=== PATIENT | male | born 1985 | race African-American/Black ===

== ENCOUNTER 2023-01-31 03:36 | Emergency (ER) | payer SELFPAY ==
[~2023-01-31] VITALS: Ht 185.4 cm; Wt 75.5 kg
[2023-01-31 04:20] LABS: Basophils # (auto) 0.2 10 ^3/uL (0-0.2); Basophils % (auto) 3.2 % (0.0-2.0); Eosinophils # (auto) 0.1 10 ^3/uL (0-0.8); Eosinophils % (auto) 1.1 % (0.0-7.0); Hematocrit 42.6 % (41.0-53.0); Hemoglobin 14.4 g/dL (13.5-17.5); Lymphocytes # (auto) 1.3 10 ^3/uL (0.4-5.4); Lymphocytes % (auto) 21.9 % (10.0-50.0); Mean Corpuscular Hemoglobin 29.5 pg (28.0-32.0); Mean Corpuscular Hgb Conc. 33.8 g/dL (32.0-36.0); Mean Corpuscular Volume 87.3 fL (80.0-100.0); Monocytes # (auto) 0.4 10 ^3/uL (0-1.3); Monocytes % (auto) 6.2 % (0.0-12.0); Neutrophils % (auto) 67.6 % (37.0-80.0); Nucleated Red Blood Cells % 0.3 %; Red Blood Cells 4.88 10^6/uL (4.5-5.90); White Blood Cell 5.9 10^3/uL (4.4-10.8)
[2023-01-31 04:29] LABS: Potassium 3.2 mmol/L (3.5-5.1)
[2023-01-31 04:36] LABS: Albumin 4.5 g/dL (3.4-5.0); BUN/Creatinine Ratio 13.8 (10.0-20.0); Bilirubin, Total 1.5 mg/dL (0.2-1.0); Calcium 9.7 mg/dL (8.5-10.1); Total Protein 8.6 g/dL (6.4-8.2)
[2023-01-31 05:30] VITALS: BP 140/89
[2023-01-31] MEDS ORDERED: ONDANSETRON HCL 4 MG/2 ML VIAL IV ONE (05:30)
[2023-01-31] MEDS ORDERED: SODIUM CHLORIDE 0.9% 1,000 ML IV ONE (05:30)
[2023-01-31] MEDS ORDERED: CIPR-173 PO (05:30)
[2023-01-31] MEDS ORDERED: cefTRIAXone 1GM/50ML D5W 50 ML IV ONE (05:30)
[2023-01-31] MEDS ORDERED: ONDA-144 PO (05:30)
[2023-01-31] MEDS ORDERED: PERCOT PO (05:30)
== END 2023-01-31 06:15 | disposition home or self-care (01) ==
LOC: ER 03:36
DX: K57.30 Diverticulosis of large intestine without perforation or abscess without bleeding (principal)
CPT/HCPCS: 36415; 74176; 80053; 83690; 85025; 96365; 96375; 99285; J0696; J2405; J7030

== ENCOUNTER 2024-09-28 10:35 | Inpatient (IN) | payer BC, OTHER ==
[~2024-09-28] VITALS: Ht 180.3 cm; Wt 80.9 kg
[~2024-09-28 10:35] MED LIST: CIPR-173 PO; CLON0.2T PO; ONDA-144 PO; PERCOT PO
[2024-09-28] MEDS: HYDROcodone-ACET 7.5/325MG TAB PO ONE (13:33)
[2024-09-28 13:37] VITALS: PULSE 58; RESP 18; O2SAT 100
[2024-09-28 13:50] LABS: Basophils # (auto) 0 10 ^3/uL (0-0.2); Basophils % (auto) 0.4 % (0.0-2.0); Eosinophils # (auto) 0 10 ^3/uL (0-0.8); Eosinophils % (auto) 0.7 % (0.0-7.0); Hematocrit 40.7 % (41.0-53.0); Hemoglobin 13.4 g/dL (13.5-17.5); Lymphocytes # (auto) 0.7 10 ^3/uL (0.4-5.4); Lymphocytes % (auto) 9.8 % (10.0-50.0); Mean Corpuscular Hemoglobin 29.5 pg (28.0-32.0); Mean Corpuscular Hgb Conc. 32.8 g/dL (32.0-36.0); Mean Corpuscular Volume 89.8 fL (80.0-100.0); Monocytes # (auto) 0.2 10 ^3/uL (0-1.3); Monocytes % (auto) 2.6 % (0.0-12.0); Neutrophils # (auto) 6.4 10 ^3/uL (1.6-8.6); Neutrophils % (auto) 86.5 % (37.0-80.0); Platelet Count (auto) 351 10^3/uL (140-450); Red Blood Cells 4.53 10^6/uL (4.5-5.90); White Blood Cell 7.4 10^3/uL (4.4-10.8)
[2024-09-28 13:57] LABS: Chloride 107 mmol/L (98-107); Potassium 3.9 mmol/L (3.5-5.1); Sodium 141 mmol/L (136-145)
[2024-09-28 13:58] LABS: Anion Gap 7 (5-15); Carbon Dioxide 27 mmol/L (20-31)
[2024-09-28 14:03] LABS: BUN/Creatinine Ratio 10.4 (10.0-20.0)
[2024-09-28 14:07] LABS: Blood Urea Nitrogen 8 mg/dL (9-23); Calcium 10.5 mg/dL (8.7-10.4); Glucose 116 mg/dL (74-106)
--- NOTE | 2024-09-28 14:26 | DVH ---
CT ABDOMEN AND PELVIS WITHOUT CONTRAST CLINICAL HISTORY: possible right inguinal hernia TECHNIQUE: Multiple contiguous axial images of the abdomen and pelvis without intravenous contrast. The images were reformatted degenerate coronal and sagittal reconstructions. All CT scans at this medical facility are performed using dose modulation techniques as appropriate t o a performed exam including the following:Automated exposure control was utilized; adjustment of the MA and/or KV according to patient size; and use of iterative reconstruction technique. Radiation Dose Information: CT Dose: CTDI volume is a mGy. Dose-length product is 495 mGy*cm Comparison: CT CT AB PEL WO CON-NO ORAL OR IV on DOS: 01/31/23 FINDINGS: Evaluation of the abdomen and pelvis is limited without intravenous contrast. There is a moderate size right inguinal hernia containing fluid, intra-abdominal fat and small bowel loop . There is likely small bowel obstruction with dilated loops proximal to the herniating loop in the right inguinal hernia. These measure up to 3.5 cm and are fluid-filled. The large bowel loops dem onstrate normal caliber. There is a small fat containing left inguinal hernia. The liver, gallbladder, pancreas, kidneys, adrenal glands, and spleen appear within normal limits. There is no gross evidence of abdominal lymphadenopathy. There is no free fluid or free air. The stomach grossly appears unremarkable. The abdominal aorta and IVC appear within normal limits. The bladder appears unremarkable for the degree of distention. Pelvic organ appears within normal miranda its. There is no gross evidence of a pelvic mass. There is no free fluid collection. Lung bases are clear. Again noted is a bleb in the lingula. There is no acute osseous abnormality. IMPRESSION: 1. Moderate size right inguinal hernia containing fluid, intra-abdominal fat and small bowel loop. Th ere is likely small bowel obstruction with dilated loops proximal to the herniating loop in the right inguinal hernia. 2. Small fat containing left inguinal hernia. HS:Y
--- NOTE | 2024-09-28 14:42 | ED.PDOC ---
General HPI Comments This is a pleasant 39-year-old male no pertinent MHx that presents for a possible right inguinal hernia Patient reports feeling pain yesterday at work Pain has been persistent since currently rated moderate to severe Wearing a hernia belt Denies any other complaints Chief Complaint: Testicle Pain Time Seen by MD: 10:59 Reviewed notes: Nurses Notes, Medications, Allergies Allergies: Coded Allergies: NO KNOWN ALLERGIES (Unverified , 01/31/23) Home Meds Active Scripts Clonidine Hydrochloride (Clonidine Hcl) 0.2 Mg Tab, 1 TAB PO BID, #20 TAB 0 Refills To be used if systolic blood pressures above 160 or diastolic pressures above 90 Prov:JUVENTINO FAJARDO PAC 09/30/23 Information Source: Patient Mode of Arrival: Ambulatory Past Medical History PAST MEDICAL HISTORY: Denies Surgical History: Denies all surgeries Family History Family History: Unknown Social History Smoker: Cigarettes Alcohol: Denies ETOH Use Drugs: Marijuana Lives In: Home All Other Systems: Reviewed and Negative (Per HPI) Physical Exam General Appearance: No Apparent Distress, Normal HEENT: Normal ENT Inspection, Pharynx Normal, TMs Normal Neck: Full Range of Motion, Non-Tender, Normal, Normal Inspection Respiratory: Chest Non-Tender, Lungs Clear, No Accessory Muscle Use, No Respiratory Distress, Normal Breath Sounds Cardiovascular: No Edema, No JVD, No Murmur, No Gallop, Normal Peripheral Pulses, Regular Rate/Rhythm Breast Exam: Deferred Gastrointestinal: No Organomegaly, Non Tender, No Pulsatile Mass, Normal Bowel Sounds, Soft, Other (Right bulging inguinal hernia. Tender to palpation. No si gns of strangulation, erythema.) Genitalia: Deferred Pelvic: Deferred Rectal: Deferred Extremities: No calf tenderness, Normal capillary refill, Normal inspection, Normal range of motion, Non-tender, No pedal edema Musculoskeletal : Apperance: Normal Neurologic: Alert, reporting process consultant II-XII nml as Tested, No Motor Deficits, Normal Affect, Normal Mood, No Sensory Deficits Cerebellar Function: Normal Reflexes: Normal Skin: Dry, Normal Color, Warm Lymphatic: No Adenopathy Was a procedure done? Was a procedure done?: No Differential Diagnosis Kidney stone (Female): Other X-Ray, Labs, Meds, VS Vital Signs Date Time Temp Pulse Resp B/P (MAP) Pulse Ox O2 Delivery O2 Flow Rate FiO2 09/28/24 20:13 99.5 53 18 158/98 (118) 98 99.5 09/28/24 13:37 58 18 100 Room Air* 0 21 09/28/24 13:35 97.5 58 18 147/98 (114) 100 97.5 09/28/24 11:05 97.7 72 18 148/104 (119) 98 97.7 09/28/24 10:46 99.0 77 18 152/104 (120) 98 Lab Test 09/28/24 13:36 Range/Units White Blood Count 7.4 4.4-10.8 10^3/uL Red Blood Count 4.53 4.5-5.90 10^6/uL Hemoglobin 13.4 L 13.5-17.5 g/dL Hematocrit 40.7 L 41.0-53.0 % Mean Corpuscular Volume 89.8 80.0-100.0 fL Mean Corpuscular Hemoglobin 29.5 28.0-32.0 pg Mean Corpuscular Hemoglobin Concent 32.8 32.0-36.0 g/dL Red Cell Distribution Width 15.0 H 11.8-14.3 % Platelet Count 351 140-450 10^3/uL Mean Platelet Volume 7.7 6.9-10.8 fL Neutrophils (%) (Auto) 86.5 H 37.0-80.0 % Lymphocytes (%) (Auto) 9.8 L 10.0-50.0 % Monocytes (%) (Auto) 2.6 0.0-12.0 % Eosinophils (%) (Auto) 0.7 0.0-7.0 % Basophils (%) (Auto) 0.4 0.0-2.0 % Neutrophils # (Auto) 6.4 1.6-8.6 10 ^3/uL Lymphocytes # (Auto) 0.7 0.4-5.4 10 ^3/uL Monocytes # (Auto) 0.2 0-1.3 10 ^3/uL Eosinophils # (Auto) 0 0-0.8 10 ^3/uL Basophils # (Auto) 0 0-0.2 10 ^3/uL Nucleated Red Blood Cells 0.0 % Sodium Level 141 136-145 mmol/L Potassium Level 3.9 3.5-5.1 mmol/L Chloride Level 107 98-107 mmol/L Carbon Dioxide Level 27 20-31 mmol/L Anion Gap 7 5-15 Blood Urea Nitrogen 8 L 9-23 mg/dL Creatinine 0.77 0.700-1.30 mg/dL Glomerular Filtration Rate Calc 118 >90 mL/min BUN/Creatinine Ratio 10.4 10.0-20.0 Serum Glucose 116 H 74-106 mg/dL Calcium Level 10.5 H 8.7-10.4 mg/dL Total Bilirubin 0.3 0.2-1.0 mg/dL Direct Bilirubin 0.1 <0.3 mg/dL Aspartate Amino Transferase (AST) 17 13-40 U/L Alanine Aminotransferase (ALT) 15 7-40 U/L Alkaline Phosphatase 72 46-116 U/L Total Protein 8.0 5.7-8.2 g/dL Albumin 5.2 H 3.2-4.8 g/dL Current Medications Medications (Trade) Dose Ordered Sig/Anita Route Start Time Stop Time Status Last Admin Acetaminophen/ Hydrocodone Bitart ([place] 7.5/325MG Tab) 1 tab ONCE ONCE PO 09/28/24 13:15 09/28/24 13:16 DC 09/28/24 13:33 Ondansetron HCl (Zofran Po) 4 mg ONCE ONCE PO 09/28/24 18:15 09/28/24 18:16 DC 09/28/24 18:11 PATIENT: RIKY PETERSONT: [id number]: [id number] : 1985 LOC: ER ROOM / BED: / AGE / SEX: 39 / M ADM STATUS: REG ER SERVICE [id number] ORDERING PHYSICIAN: DORY DEE NP PROCEDURE(s): ABPL - CT AB PEL WO CON-NO ORAL OR IV REASON: possible right inguinal hernia ORDER NUMBER(s): [id number], ACCESSION NUMBER(s): [id number] CT ABDOMEN AND PELVIS WITHOUT CONTRAST CLINICAL HISTORY: possible right inguinal hernia TECHNIQUE: Multiple contiguous axial images of the abdomen and pelvis without intravenous contrast. The images were reformatted degenerate coronal and sagittal reconstructions. All CT scans at this medical facility are performed using dose modulation techniques as appropriate to a performed exam including the following:Automated exposure control was utilized; adjustment of the MA and/or KV according to patient size; and use of iterative reconstruction technique. Radiation Dose Information: CT Dose: CTDI volume is a mGy. Dose-length product is 495 mGy*cm Comparison: CT CT AB PEL WO CON-NO ORAL OR IV on DOS: 01/31/23 FINDINGS: Evaluation of the abdomen and pelvis is limited without intravenous contrast. There is a moderate size right inguinal hernia containing fluid, intra-abdominal fat and small bowel loop . There is likely small bowel obstruction with dilated loops proximal to the herniating loop in the right inguinal hernia. These measure up to 3.5 cm and are fluid-filled. The large bowel loops demonstrate normal caliber. There is a small fat containing left inguinal hernia. The liver, gallbladder, pancreas, kidneys, adrenal glands, and spleen appear within normal limits. There is no gross evidence of abdominal lymphadenopathy. There is no free fluid or free air. The stomach grossly appears unremarkable. The abdominal aorta and IVC appear within normal limits. The bladder appears unremarkable for the degree of distention. Pelvic organ appears within normal limits. There is no gross evidence of a pelvic mass. There is no free fluid collection. Lung bases are clear. Again noted is a bleb in the lingula. There is no acute osseous abnormality. IMPRESSION: 1. Moderate size right inguinal hernia containing fluid, intra-abdominal fat and small bowel loop. There is likely small bowel obstruction with dilated loops proximal to the herniating loop in the right inguinal hernia. 2. Small fat containing left inguinal hernia. HS:Y ATED BY: GOMEZ FRANCIS MD DICTATED DATE/TIME: 09/28/241423 SIGNED BY: GOMEZ FRANCIS MD SIGNED DATE/TIME: 09/28/24 142 CC: X-Ray, Labs, Meds, VS Comment This is a pleasant 39-year-old male no pertinent MHx that presents for a possible right inguinal hernia Ab CT/Pelvis shows: 1. Moderate size right inguinal hernia containing fluid, intra-abdominal fat and small bowel loop. There is likely small bowel obstruction with dilated loops proximal to the herniating loop in the right inguinal hernia. 2. Small fat containing left inguinal hernia. Will consult with hospitalist for admission Time of 1ST Reevaluation: 14:32 Reevaluation 1ST: Improved Patient Education/Counseling: Diagnosis, Treatment Family Education/Counseling: Diagnosis, Treatment Departure 1 Departure Time of Disposition: 14:36 Impression: Primary Impression: Inguinal hernia Qualified Codes: K40.90 - Unilateral inguinal hernia, without obstruction or gangrene, not specified as recurrent Additional Impression: SBO (small bowel obstruction) Disposition: 09 ADMITTED INPATIENT Condition: Fair Critical Care Note Critical Care Time?: No Stability Stability form required: No Heart Score Heart Score: Heart Score Response (Comments) Value History N/A 0 EKG N/A 0 Age N/A 0 Risk Factors N/A 0 Troponin N/A 0 Total 0 DORY DEE NP Sep 28, 2024 14:42
[2024-09-28] MEDS: ONDANSETRON ODT 4 MG TAB PO ONE (18:11)
[2024-09-28 20:13] VITALS: BP 158/98; PULSE 53; RESP 18; TEMP 99.5; O2SAT 98
--- NOTE | 2024-09-28 22:39 | DVHHPRES ---
History of Present Illness Resident Creating Document: TOBIN SWAN RESIDENT Reason for Visit: abdominal pain, nausea and vomiting History of Present Illness This is a 39-year-old male who came into the hospital with chief complain of abdominal pain, nausea and vomiting. He has a past medical history relevant for hypertension, taking clonidine. Patient states that since yesterday he started having severe abdominal pain, most prominent on right groin area, localized, fluctuating from moderate to severe. Associated with nausea and several episodes of vomiting, he states that he is currently passing gases, his last bowel movement was yesterday morning. Denies any hematochezia, melena or hematemesis. Denies any chest pain, shortness of breath, dizziness, lightheadedness, chills, fevers, general malaise. PMH: Hypertension PSH: Denied SH: Alcohol occasionally, current smoker 5 cigarretes/day for 3 years. Cannabis 2-3x per week PCP: Mayco Deleon MD Cardiovascular: HTN Past Medical History See HPI Past Surgical History See HPI Family History See HPI Review of Systems Constitutional: No: Fever, Chills, Sweats, Weakness, Malaise, Other Eyes: No: Pain, Vision change, Conjunctivae inflammation, Eyelid inflammation, Other, Redness ENT: No: Ear pain, Ear discharge, Nose pain, Nose discharge, Nose congestion, Mouth pain, Mouth swelling, Throat pain, Throat swelling, Other Respiratory: No: Cough, Dry, Shortness of breath, SOB with excertion, Wheezing, Hemoptysis, Pleuritic Pain, Sputum, Wheezing, Other Cardiovascular: No: Chest Pain, Palpitations, Orthopnea, Paroxysmal Noc. Dyspnea, Edema, Lt Headedness, Other Gastrointestinal: Nausea, Vomiting, Abdominal Pain; No: Diarrhea, Constipation, Melena, Hematochezia, Other Genitourinary: No Dysuria, No Frequency, No Incontinence, No Hematuria, No Retention, No Other Musculoskeletal: No: other, neck pain, shoulder pain, arm pain, back pain, hand pain, leg pain, foot pain Skin: No: Rash, Lesions, Jaundice, Bruising, Other Neurological: No: Weakness, Numbness, Incoordination, Change in speech, Confusion, Seizures, Other Allergies: Coded Allergies: NO KNOWN ALLERGIES (Unverified , 01/31/23) Medications Current Medications Medications Dose Ordered Sig/Anita Route Start Time Stop Time Status Last Admin Dose Admin Ondansetron HCl 4 mg Q4HPRN PRN IV 09/28/24 22:30 UNV Dextrose/Sodium Chloride 1,000 ml @ 125 mls/hr Q8H IV 09/28/24 22:30 UNV Morphine Sulfate 2 mg Q4HPRN PRN IV 09/28/24 22:30 UNV Exam Vital Signs Vital Signs Date Time Temp Pulse Resp B/P (MAP) Pulse Ox O2 Delivery O2 Flow Rate FiO2 09/28/24 20:13 99.5 53 18 158/98 (118) 98 99.5 09/28/24 13:37 Room Air* 0 21 General Appearance: Alert, Oriented X3, Cooperative, mild distress HEENT: Atraumatic, PERRLA, EOMI, Mucous membr. moist/pink Respiratory: Clear to auscultation, Normal air movement Cardiovascular: Regular rate, Normal S1, Normal S2, No murmurs Abdominal: Normal bowel sounds, Soft, Other (right inguinal bulge, tender, non reducible) Extremities: No clubbing, No cyanosis, No edema, Normal pulses Skin: No rashes, No breakdown, No significant lesion Neuro: Normal gait, Normal speech, Strength at 5/5 X4 ext, Normal tone Psych/Mental Status: Mental status NL, Mood NL Labs/Xrays Labs Test 09/28/24 13:36 Range/Units White Blood Count 7.4 4.4-10.8 10^3/uL Red Blood Count 4.53 4.5-5.90 10^6/uL Hemoglobin 13.4 L 13.5-17.5 g/dL Hematocrit 40.7 L 41.0-53.0 % Mean Corpuscular Volume 89.8 80.0-100.0 fL Mean Corpuscular Hemoglobin 29.5 28.0-32.0 pg Mean Corpuscular Hemoglobin Concent 32.8 32.0-36.0 g/dL Red Cell Distribution Width 15.0 H 11.8-14.3 % Platelet Count 351 140-450 10^3/uL Mean Platelet Volume 7.7 6.9-10.8 fL Neutrophils (%) (Auto) 86.5 H 37.0-80.0 % Lymphocytes (%) (Auto) 9.8 L 10.0-50.0 % Monocytes (%) (Auto) 2.6 0.0-12.0 % Eosinophils (%) (Auto) 0.7 0.0-7.0 % Basophils (%) (Auto) 0.4 0.0-2.0 % Neutrophils # (Auto) 6.4 1.6-8.6 10 ^3/uL Lymphocytes # (Auto) 0.7 0.4-5.4 10 ^3/uL Monocytes # (Auto) 0.2 0-1.3 10 ^3/uL Eosinophils # (Auto) 0 0-0.8 10 ^3/uL Basophils # (Auto) 0 0-0.2 10 ^3/uL Nucleated Red Blood Cells 0.0 % Sodium Level 141 136-145 mmol/L Potassium Level 3.9 3.5-5.1 mmol/L Chloride Level 107 98-107 mmol/L Carbon Dioxide Level 27 20-31 mmol/L Anion Gap 7 5-15 Blood Urea Nitrogen 8 L 9-23 mg/dL Creatinine 0.77 0.700-1.30 mg/dL Glomerular Filtration Rate Calc 118 >90 mL/min BUN/Creatinine Ratio 10.4 10.0-20.0 Serum Glucose 116 H 74-106 mg/dL Calcium Level 10.5 H 8.7-10.4 mg/dL Assessment/Plan Assessment/Plan # abdominal pain likely due to small-bowel obstruction, not incarcerated or strangulated #bilateral inguinal hernia NPO Maintenance fluids D5 water/NS 120ml/hr Zofran p.r.n. Morphine p.r.n. ordered type and screen, LFTs, PT/PTT Consulted surgery #Hypertension, uncontrolled Hydralazine prn #Nicotine dependent #Cannabis dependent Counseled on lifestyle modifications, smoking cessation and cannabis cessation Goals of care discussed for 30 minutes. Full code Case was discussed with Dr. Bhatia Plan discussed with: Patient My Orders Orders - TOBIN SWAN RESIDENT Procedure Category Date Status Time Admit ADMIT 09/28/24 Transmitted 22:19 Notify Of Changes TEA 09/28/24 In Process From Base 22:19 Npo Except Ice Chips ORDERS 09/28/24 Transmitted 22:19 Ondansetron Hcl PHA 09/28/24 Logged (Zofran) 22:30 D5w/Sod Chlo 0.9% PHA 09/28/24 Logged (D5w Ns 0.9%) 22:30 Urinalysis LAB 09/28/24 Logged 22:19 Drug Screen LAB 09/28/24 Logged 22:19 * Surgical Consult CONS 09/28/24 Transmitted Morphine Sulfate PHA 09/28/24 Logged Injection 22:30 Hepatic Panel LAB 09/28/24 Logged 22:19 Date of Service: Sep 28, 2024 Billing Provider: CONSTANTINO BHATIA MD Common Visit Codes: [id number] INP/OBS CARE (HIGH) TOBIN SWAN RESIDENT Sep 28, 2024 22:39 CONSTANTINO BHATIA MD Sep 29, 2024 09:43
[2024-09-28 22:59] LABS: Albumin 5.2 g/dL (3.2-4.8); Bilirubin, Direct 0.1 mg/dL (<0.3); Bilirubin, Total 0.3 mg/dL (0.2-1.0)
[2024-09-28] MEDS ORDERED: hydrALAZINE HCL 20 MG/ML VL IV PRN (23:00)
[2024-09-28] MEDS: D5W/SOD CHLO 0.9% 1,000 ML IV SCH (23:29)
[2024-09-28] MEDS: MORPHINE SULFATE INJ 2 MG/ml SYRG IV PRN (23:45)
[2024-09-28 23:59] LABS: INR 0.99 (0.9-1.15); Partial Thromboplastin Time 26.3 SEC (24.5-34.5); Prothrombin Time 10.5 sec (9.3-11.8)
[2024-09-29] VITALS (8 sets, daily range): BP systolic 129–150; BP diastolic 79–94; PULSE 54–87; RESP 10–18; TEMP 97.3–98.4; O2SAT 94–100
[2024-09-29 06:50] LABS: Basophils # (auto) 0 10 ^3/uL (0-0.2); Basophils % (auto) 0.3 % (0.0-2.0); Eosinophils # (auto) 0 10 ^3/uL (0-0.8); Eosinophils % (auto) 0.2 % (0.0-7.0); Hematocrit 38.9 % (41.0-53.0); Hemoglobin 12.9 g/dL (13.5-17.5); Lymphocytes # (auto) 1.5 10 ^3/uL (0.4-5.4); Lymphocytes % (auto) 19.8 % (10.0-50.0); Mean Corpuscular Hemoglobin 29.5 pg (28.0-32.0); Mean Corpuscular Hgb Conc. 33.2 g/dL (32.0-36.0); Mean Corpuscular Volume 88.7 fL (80.0-100.0); Monocytes # (auto) 0.4 10 ^3/uL (0-1.3); Monocytes % (auto) 5.7 % (0.0-12.0); Neutrophils # (auto) 5.7 10 ^3/uL (1.6-8.6); Platelet Count (auto) 343 10^3/uL (140-450); Red Blood Cells 4.39 10^6/uL (4.5-5.90); Red Cell Distribution Width 14.8 % (11.8-14.3); White Blood Cell 7.7 10^3/uL (4.4-10.8)
[2024-09-29 06:54] LABS: Anion Gap 10 (5-15); Carbon Dioxide 27 mmol/L (20-31); Chloride 107 mmol/L (98-107); Sodium 144 mmol/L (136-145)
[2024-09-29 07:00] LABS: BUN/Creatinine Ratio 13.9 (10.0-20.0); Blood Urea Nitrogen 11 mg/dL (9-23); Glucose 105 mg/dL (74-106)
[2024-09-29 07:03] LABS: Calcium 10.5 mg/dL (8.7-10.4); Potassium 3.4 mmol/L (3.5-5.1)
--- NOTE | 2024-09-29 07:05 | DVH ---
CHEST RADIOGRAPH Indication: sob Technique: Single frontal view of the chest was obtained Comparison: None FINDINGS: Lines and Tubes: None Lungs: Hazy opacity in the left lower lobe. Pleura: No effusion. No pneumothorax. Cardiomediastinal contours: Unremarkable Bones: No acute osseous abnormality. IMPRESSION: 1. Mild hazy opacity in the left lower lobe may represent atelectasis or infiltrate.
[2024-09-29] MEDS ORDERED: fentaNYL CITRATE 100 MCG/2 ML VL ONE (07:38)
[2024-09-29] MEDS ORDERED: MIDAZOLAM HCL 2MG/2ML 2ml VIAL (1mg/ml) ONE (07:38)
[2024-09-29] MEDS ORDERED: MEPERIDINE HCL (25 MG/ML) 1ML VIAL ONE (07:38)
--- NOTE | 2024-09-29 07:45 | DVHINCON2 ---
Date of service: Sep 29, 2024 Family History: Cerebrovascular accident (CVA) G8 MOTHER Hypertension G8 MOTHER G8 FATHER Allergies: Coded Allergies: NO KNOWN ALLERGIES (Unverified , 01/31/23) Home Meds Active Scripts Clonidine Hydrochloride (Clonidine Hcl) 0.2 Mg Tab, 1 TAB PO BID, #20 TAB 0 Refills To be used if systolic blood pressures above 160 or diastolic pressures above 90 Prov:JUVENTINO FAJARDO PAC 09/30/23 Current Medications Current Medications Medications (Trade) Dose Ordered Sig/Anita Route PRN Reason Start Time Stop Time Status Last Admin Ondansetron HCl (Zofran) 4 mg Q4HPRN PRN IV NAUSEA / VOMITING 09/28/24 22:30 Dextrose/Sodium Chloride 1,000 ml @ 125 mls/hr Q8H IV 09/28/24 22:30 09/28/24 23:29 Morphine Sulfate 2 mg Q4HPRN PRN IV SEVERE PAIN (7-10 PAIN SCALE) 09/28/24 22:30 09/29/24 03:41 Hydralazine HCl (Apresoline Injection) 10 mg Q6HP PRN IV SBP>160 09/28/24 23:00 Vital Signs Vital Signs Date Time Temp Pulse Resp B/P (MAP) Pulse Ox O2 Delivery O2 Flow Rate FiO2 09/29/24 05:00 98.0 59 18 139/84 (102) 100 98.0 09/29/24 01:31 Room Air* 0 21 Labs/Diagnostic Data Labs Test 09/29/24 05:13 09/28/24 23:22 09/28/24 13:36 Range/Units White Blood Count 7.7 4.4-10.8 10^3/uL Red Blood Count 4.39 L 4.5-5.90 10^6/uL Hemoglobin 12.9 L 13.5-17.5 g/dL Hematocrit 38.9 L 41.0-53.0 % Mean Corpuscular Volume 88.7 80.0-100.0 fL Mean Corpuscular Hemoglobin 29.5 28.0-32.0 pg Mean Corpuscular Hemoglobin Concent 33.2 32.0-36.0 g/dL Red Cell Distribution Width 14.8 H 11.8-14.3 % Platelet Count 343 140-450 10^3/uL Mean Platelet Volume 8.2 6.9-10.8 fL Neutrophils (%) (Auto) 74.0 37.0-80.0 % Lymphocytes (%) (Auto) 19.8 10.0-50.0 % Monocytes (%) (Auto) 5.7 0.0-12.0 % Eosinophils (%) (Auto) 0.2 0.0-7.0 % Basophils (%) (Auto) 0.3 0.0-2.0 % Neutrophils # (Auto) 5.7 1.6-8.6 10 ^3/uL Lymphocytes # (Auto) 1.5 0.4-5.4 10 ^3/uL Monocytes # (Auto) 0.4 0-1.3 10 ^3/uL Eosinophils # (Auto) 0 0-0.8 10 ^3/uL Basophils # (Auto) 0 0-0.2 10 ^3/uL Nucleated Red Blood Cells 0.0 % Sodium Level 144 136-145 mmol/L Potassium Level 3.4 L 3.5-5.1 mmol/L Chloride Level 107 98-107 mmol/L Carbon Dioxide Level 27 20-31 mmol/L Anion Gap 10 5-15 Blood Urea Nitrogen 11 9-23 mg/dL Creatinine 0.79 0.700-1.30 mg/dL Glomerular Filtration Rate Calc 117 >90 mL/min BUN/Creatinine Ratio 13.9 10.0-20.0 Serum Glucose 105 74-106 mg/dL Calcium Level 10.5 H 8.7-10.4 mg/dL Prothrombin Time 10.5 9.3-11.8 sec Prothrombin Time INR 0.99 0.9-1.15 Activated Partial Thromboplast Time 26.3 24.5-34.5 SEC Total Bilirubin 0.3 0.2-1.0 mg/dL Direct Bilirubin 0.1 <0.3 mg/dL Aspartate Amino Transferase (AST) 17 13-40 U/L Alanine Aminotransferase (ALT) 15 7-40 U/L Alkaline Phosphatase 72 46-116 U/L Total Protein 8.0 5.7-8.2 g/dL Albumin 5.2 H 3.2-4.8 g/dL Assessment 39 year old mqale with right inguinal hernia incarceration pain, nausea and vomiting, repair risks and complications explained in detail. Plan discussed with: Patient JONI BAKER MD Sep 29, 2024 07:45
[2024-09-29] MEDS ORDERED: PROPOFOL 10 MG/ML 20 ML IV ONE (08:20)
[2024-09-29] MEDS ORDERED: DexAMETHasone SOD PHOS 10MG/1ML VIAL INJ ONE (08:20)
[2024-09-29] MEDS: BUPIVACAINE HCL 0.25% P/F 10 ML VIAL ONE (08:47)
[2024-09-29] MEDS: LIDOCAINE W/ EPINEPHRINE 1% 20ML VIAL ONE (08:48)
[2024-09-29] MEDS ORDERED: SUGAMMADEX 200mg/2ml Vial (100MG/ML) IV ONE (09:08)
[2024-09-29] MEDS ORDERED: MORPHINE SULFATE 4 MG/ML SYR/VIAL IV PRN (09:30)
[2024-09-29] MEDS ORDERED: MIDAZOLAM HCL 2MG/2ML 2ml VIAL (1mg/ml) IV PRN (09:30)
[2024-09-29] MEDS ORDERED: ePHEDrine SULFATE 50 MG/ML AMP IV PRN (09:30)
[2024-09-29] MEDS ORDERED: hydrALAZINE HCL 20 MG/ML VL IV PRN (09:30)
--- NOTE | 2024-09-29 09:31 | DVHOP ---
DATE OF SURGERY: 09/29/2024 PREOPERATIVE DIAGNOSIS: Incarcerated right inguinal hernia. POSTOPERATIVE DIAGNOSIS: Incarcerated right inguinal hernia. SURGEON: Donavan Green MD COMMERCIAL DIVER: Eric Santos NP. ANESTHESIA: General endotracheal. ANESTHESIOLOGIST: Dr. Madrid. PROCEDURE: Repair of incarcerated right inguinal hernia. DESCRIPTION OF PROCEDURE: Under general anesthesia with the patient's skin prepped and draped and infiltrated with 0.25% Marcaine and 1% Xylocaine at the site of the incarcerated hernia, incision was made over the visible palpable bulge. Incision was deepened with an electrocautery onto the fibers of the external oblique aponeurosis. The external inguinal ring was identified. The ilioinguinal nerve was identified, reflected laterally and protected. The patient's cord structures were densely adherent to it, inflamed fibrotic external inguinal hernia sac, which was hemorrhagic with evidence of incarceration. The sac was opened and digitally explored. It contained no viscera at the time of this exploration. The sac was then dissected from the port structures and cremasteric fibers with great deal of difficulty due to the tremendous amount of fibrosis and inflammatory reaction. Eventually, the cord structures including the vas deferens were from the sac and retracted laterally and protected. The sac was traced high into the internal inguinal ring where it was clamped with Purnima clamps and the excess peritoneum was amputated and submitted. The stump of the peritoneal reflection was triply ligated with a nonabsorbable sutures. Subsequently, a Bassini type repair was carried out using nonabsorbable sutures through the conjoined tendon and reflecting portion of Poupart's ligament. The repair was carried out to reconstruct the external ring to accommodate the cord structures and the fingertip in order not to infarct the testicle. At this point, the ilioinguinal nerve was returned into its normal anatomical position. The wound was irrigated. Hemostasis was meticulously accomplished. The testicle was placed back into the scrotal compartment and placed on tension. The subcutaneous tissues and skin were approximated using Monocryl sutures, Dermabond glue and Steri-Strips. The patient remained hypertensive throughout the procedure with diastolic blood pressures over 100 despite the anesthesiologist's interventions. The patient left the operating room to be transferred to the recovery room. MD ASHLEY Arnold/DANY TID: [id number] RECEIPT: [id number]
[2024-09-29] MEDS: HYDROmorphone HCL 2 MG/ML VL/or syr IV PRN (09:43)
[2024-09-29] MEDS: POTASSIUM CHL 20MEQ/100ML 100 ML IV ONE (10:57)
[2024-09-29] MEDS: D5W/SOD CHL 0.45%/KCL 20MEQ 1,000 ML IV SCH (10:57)
[2024-09-29] MEDS: ONDANSETRON HCL 4 MG/2 ML VIAL IV PRN (11:44)
[2024-09-29] MEDS: SUCCINYLCHOLINE CHLORIDE 20 MG/ML 10ML VIAL IV ONE (11:52)
[2024-09-29] MEDS: ceFAZolin 2 GM/D5W100ml 100 ML IV ONE (11:52)
[2024-09-29] MEDS: HYDROmorphone HCL 2 MG/ML VL/or syr ONE (11:53)
[2024-09-29] MEDS: ONDANSETRON HCL 4 MG/2 ML VIAL IV ONE (11:53)
[2024-09-29] MEDS: KETOROLAC TROMETH 30 MG/ML 1ML VIAL IV ONE (11:53)
[2024-09-29] MEDS: HYDROcodone-ACET 5/325MG TAB PO PRN (13:37)
[2024-09-29] MEDS: ceFAZolin 1GM/50ML 50 ML IV SCH (14:48)
[2024-09-29] MEDS: metroNIDAZOLE 500MG/100ML 100 ML IV SCH (14:49)
--- NOTE | 2024-09-29 16:44 | DVHPNRES ---
Progress Note Date Seen: Sep 29, 2024 Resident Creating Document: MARIA E ABRAHAM RESIDENT Has the PT tested + for MRSA If YES, has PT been informed?: No Medical Necessity Reason Pt with a Central, PICC or Fol: No Subjective Review of Systems This is a 39-year-old male with past medical history of hypertension who presented to the ED with chief complaint of acute abdominal pain associated with nausea and vomiting. The patient admitted, that has been dealing with minimal abdominal discomfort for the last four months but that has been tolerable until recently that became acute and on tolerable. The patient states that since one day before coming to the ED, he started experiencing severe abdominal pain that was localized in the right groin area described as moderate to severe in nature. The patient also reported associated nausea and emesis. The patient also states that he is currently having bowel movements and passing gases without complication. The patient denied melena, hematemesis, hematochezia, chest pain, shortness of breath or any other symptoms at this time. Initial CT scan of the abdomen showed moderate size right inguinal hernia containing fluid, intra- abdominal fat and small bowel loop likely due to small bowel obstruction with dilated loops proximal to the herniating loop in the right inguinal hernia. Surgery was consulted and the patient was admitted for further assessment and management. Patient was seen and examined at bedside. This morning, the patient was taken to the OR for incarcerated right inguinal hernia causing possible small bowel obstruction. The patient was placed NPO since admission and on dextrose fluids at 120 cc/hour. The patient underwent incarcerated right inguinal hernia repair today without complications. The patient is currently on IV cefazolin and IV metronidazole. We will continue IV fluids at this time and the patient was started on clear liquid diet. We will continue monitoring the patient closely. ROS Constitutional: Denies weight loss, fever and chills. HEENT: Denies changes in vision and hearing. Respiratory: Denies shortness of breath and cough Cardiovascular: Denies chest discomfort or palpitations GI: Reports mild to moderate right inguinal pain at the level of the incision/surgery. Denies nausea, vomiting or diarrhea : Denies dysuria and urinary frequency. Musculoskeletal: Denies myalgias and joint pain Skin: Denies rash and pruritus. Neurological: Denies dizziness, headache, vision or hearing problems Objective vital signs Vital Sign Date Time Temp Pulse Resp B/P (MAP) Pulse Ox O2 Delivery O2 Flow Rate FiO2 1/14/25 12:56 98.0 64 18 150/89 (109) 96 98.0 09/29/24 09:25 Mask 7.0 100 Total Intake and Output 09/28/24 09/28/24 09/29/24 15:00 23:00 07:00 Intake Total 500 ml Output Total 620 ml Balance -120 ml medications Current Medications Medications Dose Ordered Sig/Anita Route Start Time Stop Time Status Last Admin Dose Admin Ondansetron HCl 4 mg Q4HPRN PRN IV 09/28/24 22:30 09/29/24 11:44 4 MG Dextrose/Sodium Chloride 1,000 ml @ 125 mls/hr Q8H IV 09/28/24 22:30 09/28/24 23:29 125 MLS/HR Morphine Sulfate 2 mg Q4HPRN PRN IV 09/28/24 22:30 09/29/24 11:42 2 MG Hydralazine HCl 10 mg Q6HP PRN IV 09/28/24 23:00 Potassium Chloride/Dextrose/ Sod Cl 1,000 ml @ 75 mls/hr [id number] IV 09/29/24 09:30 09/29/24 10:57 75 MLS/HR Cefazolin Sodium 50 ml @ 100 mls/hr Q8HR IV 09/29/24 14:00 09/29/24 14:48 100 MLS/HR Metronidazole 100 ml @ 100 mls/hr Q8HR IV 09/29/24 14:00 09/29/24 14:49 100 MLS/HR Acetaminophen/ Hydrocodone Bitart 1 tab Q6HPRN PRN PO 09/29/24 12:15 09/29/24 13:37 1 TAB Examination Physical Examination General: Patient alert and oriented in person, place and time. Patient following commands. HEENT: Normocephalic, atraumatic, moist mucous membranes Respiratory/pulmonary: Clear lungs bilaterally, no associated crackles or wheezes. Cardiovascular: Normal heart sounds S1 and S2 with no associated murmurs Abdomen: Abdomen nondistended, there is no pain to palpation in the abdominal region but there is mild to moderate pain in the right inguinal area at the level of the incision. No palpable masses at this time. Extremities: There is no peripheral edema present at the lower extremities. Peripheral Pulses: 3+ Radial (R). 3+ Radial (L). 3+ Dorsalis pedis (R). 3+ Dorsalis pedis(L) Skin: No rashes or pruritus, there is no sacral edema present at this time. Neurological: Intact cranial nerves with no focal neurologic deficits laboratory and microbiology Laboratory Tests 09/29/24 05:13 Test 09/29/24 05:13 Range/Units Serum Glucose 105 74-106 mg/dL Problem List/Assessment/Plan Problem List/Assessment/Plan Assessment/plan Acute abdominal pain likely due to incarcerated right inguinal hernia Possible Small bowel obstruction likely due to incarcerated right inguinal hernia -patient was placed NPO -patient underwent right incarcerated inguinal hernia repair today -continue IV cefazolin -start IV metronidazole -continue Zofran and morphine for pain and antiemetic precautions -surgery on board -encourage patient to ambulate slowly as tolerated Primary hypertension -Start clonidine 0.2mg BID -Monitor BP Drug abuser cannabis -In Home Aide patient on drug cessation for 8 min Nicotine dependent -In Home Aide on smoking cessation Hypokalemia -K was 3.4, was replaced -Monitor electrolytes closely ACP, Discussed with the patient at bedside for 15 min Goals of care discussed with the patient at bedside for 20min, FULL CODE Plan discussed with Dr. Bustamante Plan discussed with: Patient My Orders My Orders Orders - MARIA E ABRAHAM Procedure Category Date Status Time Metronidazole PHA 09/29/24 In Process 500mg/100ml (Flagyl 14:00 Hydrocodone-Acet PHA 09/29/24 In Process 5/325mg Tab ([place] 12:15 Date of Service: Sep 29, 2024 Billing Provider: RAJWINDER SMALLWOOD MD Common Visit Codes: [id number] INP/OBS CARE(HIGH) MARIA E ABRAHAM RESIDENT Sep 29, 2024 16:44 RAJWINDER SMALLWOOD MD Oct 01, 2024 15:54
[2024-09-29 23:42] LABS: Urine Bacteria None Seen /hpf (None Seen)
[2024-09-29] MEDS: cloNIDine HCL 0.1 MG TAB PO SCH (23:44)
[2024-09-29 23:57] LABS: Urine Blood Negative /uL (Negative); Urine Clarity Clear (Clear); Urine Color Yellow (Yellow); Urine Hyaline Cast FEW /lpf (0 - 2); Urine Mucus FEW (None Seen); Urine Protein, UAD TRACE (Negative); Urine Squamous Epithelial Cell None Seen /hpf (<5); Urine Urobilinogen Normal (Negative); Urine WBC 1 /hpf (0 - 3)
[2024-09-30 01:20] VITALS: BP 142/97; PULSE 56; RESP 16; TEMP 98.3; O2SAT 98
[2024-09-30 01:34] LABS: Amphetamine Screen, Urine Neg (NEGATIVE); Barbiturate Scree,Urine Neg (NEGATIVE); Benzodiazephine Screen, Urine Pos (NEGATIVE); Cannabinoid Screen, Urine Pos (NEGATIVE); Cocaine Screen, Urine Neg (NEGATIVE); Opiate Scree,Urine Pos (NEGATIVE); Phencyclidine Screen, Urine Neg (NEGATIVE)
[2024-09-30 05:26] VITALS: BP 122/84; PULSE 57; RESP 17; TEMP 98.2; O2SAT 98
--- NOTE | 2024-09-30 07:54 | DVHPNRES ---
Progress Note Date Seen: Sep 30, 2024 Resident Creating Document: MARIA E ABRAHAM RESIDENT Has the PT tested + for MRSA If YES, has PT been informed?: No Medical Necessity Reason Pt with a Central, PICC or Fol: No Subjective Review of Systems This is a 39-year-old male with past medical history of hypertension who presented to the ED with chief complaint of acute abdominal pain associated with nausea and vomiting. The patient admitted, that has been dealing with minimal abdominal discomfort for the last four months but that has been tolerable until recently that became acute and on tolerable. The patient states that since one day before coming to the ED, he started experiencing severe abdominal pain that was localized in the right groin area described as moderate to severe in nature. The patient also reported associated nausea and emesis. The patient also states that he is currently having bowel movements and passing gases without complication. The patient denied melena, hematemesis, hematochezia, chest pain, shortness of breath or any other symptoms at this time. Initial CT scan of the abdomen showed moderate size right inguinal hernia containing fluid, intra- abdominal fat and small bowel loop likely due to small bowel obstruction with dilated loops proximal to the herniating loop in the right inguinal hernia. Surgery was consulted and the patient was admitted for further assessment and management. Patient seen and examined at bedside. The patient still reports mild right inguinal tenderness at the level of the incision but states that there is no abdominal pain at this time. The patient is currently on clear liquid diet and is tolerating without nausea or vomiting. The patient mentioned it passing gases. We will continue on IV cefazolin, metronidazole. Per night nurse, blood pressure has been in the higher side despite being on her home medication clonidine 0.2 mg b.i.d.. This might be due to pain, we will try to modulate pain and monitor blood pressure closely. We will add an additional medication for blood pressure if needed. The patient did report episode of nausea overnight for which he received Zofran. ROS Constitutional: Denies weight loss, fever and chills. HEENT: Denies changes in vision and hearing. Respiratory: Denies shortness of breath and cough Cardiovascular: Denies chest discomfort or palpitations GI: Reports right inguinal pain at the level of the incisions. Denies abdominal tenderness, nausea vomiting or diarrhea : Denies dysuria and urinary frequency. Musculoskeletal: Denies myalgias and joint pain Skin: Denies rash and pruritus. Neurological: Denies dizziness, headache, vision or hearing problems Objective vital signs Vital Sign Date Time Temp Pulse Resp B/P (MAP) Pulse Ox O2 Delivery O2 Flow Rate FiO2 09/30/24 05:26 98.2 57 17 122/84 (97) 98 98.2 09/29/24 20:00 Room Air* 0 21 Total Intake and Output 09/29/24 09/29/24 09/30/24 15:00 23:00 07:00 Intake Total 150 ml 1175 ml 350 ml Balance 150 ml 1175 ml 350 ml medications Current Medications Medications Dose Ordered Sig/Anita Route Start Time Stop Time Status Last Admin Dose Admin Ondansetron HCl 4 mg Q4HPRN PRN IV 09/28/24 22:30 09/29/24 20:05 4 MG Dextrose/Sodium Chloride 1,000 ml @ 125 mls/hr Q8H IV 09/28/24 22:30 09/28/24 23:29 125 MLS/HR Morphine Sulfate 2 mg Q4HPRN PRN IV 09/28/24 22:30 09/30/24 02:29 2 MG Hydralazine HCl 10 mg Q6HP PRN IV 09/28/24 23:00 Cefazolin Sodium 50 ml @ 100 mls/hr Q8HR IV 09/29/24 14:00 09/30/24 05:12 100 MLS/HR Metronidazole 100 ml @ 100 mls/hr Q8HR IV 09/29/24 14:00 09/30/24 06:02 100 MLS/HR Acetaminophen/ Hydrocodone Bitart 1 tab Q6HPRN PRN PO 09/29/24 12:15 09/30/24 05:12 1 TAB Clonidine HCl 0.2 mg BID PO 09/29/24 22:00 09/29/24 23:44 0.2 MG Examination Physical Examination General: Patient alert and oriented in person, place and time. Patient following commands. HEENT: Normocephalic, atraumatic, moist mucous membranes Respiratory/pulmonary: Clear lungs bilaterally, no associated crackles or wheezes. Cardiovascular: Normal heart sounds S1 and S2 with no associated murmurs Abdomen: Abdomen nondistended. They are still mild tenderness to palpation of the right inguinal area at the level of the incision. There are no masses palpable of the abdomen at this time. Extremities: There is no peripheral edema present at the lower extremities. Peripheral Pulses: 3+ Radial (R). 3+ Radial (L). 3+ Dorsalis pedis (R). 3+ Dorsalis pedis(L) Skin: No rashes or pruritus, there is no sacral edema present at this time. Neurological: Intact cranial nerves with no focal neurologic deficits laboratory and microbiology Laboratory Tests 09/29/24 05:13 Test 09/29/24 05:13 Range/Units Serum Glucose 105 74-106 mg/dL Problem List/Assessment/Plan Problem List/Assessment/Plan Assessment/plan Acute abdominal pain likely due to incarcerated right inguinal hernia Possible Small bowel obstruction likely due to incarcerated right inguinal hernia -patient was placed NPO -patient underwent right incarcerated inguinal hernia repair today -continue IV cefazolin -Continue IV metronidazole -continue Zofran and morphine for pain and antiemetic precautions -surgery on board -encourage patient to ambulate slowly as tolerated -Still not passing BM but does passing gases -Awaiting for surgical clearence Primary hypertension -Resume home clonidine 0.2mg BID -Monitor BP 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 Bustamante Plan discussed with: Patient My Orders My Orders Orders - MARIA E ABRAHAM Procedure Category Date Status Time Metronidazole PHA 09/29/24 In Process 500mg/100ml (Flagyl 14:00 Hydrocodone-Acet PHA 09/29/24 In Process 5/325mg Tab ([place] 12:15 Clonidine Hcl Tablet PHA 09/29/24 In Process ([place] Tablet) 22:00 Complete Blood Count LAB 09/30/24 Logged 04:00 Comprehensive LAB 09/30/24 Logged Metabolic Panel 04:00 Date of Service: Sep 30, 2024 Billing Provider: RAJWINDER SMALLWOOD MD Common Visit Codes: [id number] INP/OBS CARE(HIGH) MARIA E ABRAHAM Sep 30, 2024 07:54 RAJWINDER SMALLWOOD MD Oct 01, 2024 15:59
[2024-09-30 08:15] LABS: Basophils # (auto) 0 10 ^3/uL (0-0.2); Basophils % (auto) 0.2 % (0.0-2.0); Eosinophils # (auto) 0 10 ^3/uL (0-0.8); Eosinophils % (auto) 0.3 % (0.0-7.0); Hematocrit 34.2 % (41.0-53.0); Hemoglobin 11.2 g/dL (13.5-17.5); Lymphocytes # (auto) 1.4 10 ^3/uL (0.4-5.4); Lymphocytes % (auto) 22.2 % (10.0-50.0); Mean Corpuscular Hgb Conc. 32.6 g/dL (32.0-36.0); Mean Corpuscular Volume 88.8 fL (80.0-100.0); Monocytes # (auto) 0.5 10 ^3/uL (0-1.3); Monocytes % (auto) 8.2 % (0.0-12.0); Neutrophils # (auto) 4.3 10 ^3/uL (1.6-8.6); Neutrophils % (auto) 69.1 % (37.0-80.0); Nucleated Red Blood Cells % 0.1 %; Platelet Count (auto) 298 10^3/uL (140-450); Red Blood Cells 3.85 10^6/uL (4.5-5.90); Red Cell Distribution Width 15.1 % (11.8-14.3); White Blood Cell 6.3 10^3/uL (4.4-10.8)
[2024-09-30 08:37] LABS: Alkaline Phosphatase 61 U/L (46-116); Anion Gap 8 (5-15); BUN/Creatinine Ratio 9.5 (10.0-20.0); Calcium 10.1 mg/dL (8.7-10.4); Carbon Dioxide 26 mmol/L (20-31); Chloride 105 mmol/L (98-107); Potassium 3.8 mmol/L (3.5-5.1); Sodium 139 mmol/L (136-145)
[2024-09-30 08:38] LABS: Albumin 4.4 g/dL (3.2-4.8); Bilirubin, Total 0.7 mg/dL (0.2-1.0); Total Protein 6.6 g/dL (5.7-8.2)
[2024-09-30 08:42] LABS: Alanine Aminotransferase < 9 U/L (7-40); Aspartate Aminotransferase 9 U/L (13-40); Blood Urea Nitrogen 7 mg/dL (9-23); Glucose 107 mg/dL (74-106)
[2024-09-30 08:59] VITALS: BP 126/87; PULSE 61; RESP 14; TEMP 97.6; O2SAT 97
[2024-09-30] MEDS ORDERED: ESMOLOL HCL (10MG/ML) 10 ML VIAL IV ONE (11:51)
[2024-09-30 12:30] VITALS: BP 106/76; PULSE 57; RESP 16; TEMP 97.6; O2SAT 93
--- NOTE | 2024-09-30 12:46 | DVHPN2 ---
Progress Note Date Seen: Sep 30, 2024 Has the PT tested + for MRSA If YES, has PT been informed?: No Medical Necessity Reason Pt with a Central, PICC or Fol: No Subjective Patient reports: No new complaints, Feels better Review of Systems: HEENT:Normal, CVS:Normal, RESPIRATORY:Normal, GI:Normal, :Normal, MSK:Normal, NEURO:Normal Objective vital signs Vital Sign Date Time Temp Pulse Resp B/P (MAP) Pulse Ox O2 Delivery O2 Flow Rate FiO2 09/30/24 11:25 63 16 122/81 09/30/24 08:59 97.6 97 97.6 09/29/24 20:00 Room Air* 0 21 Total Intake and Output 09/29/24 09/29/24 09/30/24 15:00 23:00 07:00 Intake Total 150 ml 1175 ml 350 ml Balance 150 ml 1175 ml 350 ml medications Current Medications Medications Dose Ordered Sig/Anita Route Start Time Stop Time Status Last Admin Dose Admin Ondansetron HCl 4 mg Q4HPRN PRN IV 09/28/24 22:30 09/29/24 20:05 4 MG Dextrose/Sodium Chloride 1,000 ml @ 125 mls/hr Q8H IV 09/28/24 22:30 09/30/24 11:25 125 MLS/HR Morphine Sulfate 2 mg Q4HPRN PRN IV 09/28/24 22:30 09/30/24 11:25 2 MG Hydralazine HCl 10 mg Q6HP PRN IV 09/28/24 23:00 Cefazolin Sodium 50 ml @ 100 mls/hr Q8HR IV 09/29/24 14:00 09/30/24 05:12 100 MLS/HR Metronidazole 100 ml @ 100 mls/hr Q8HR IV 09/29/24 14:00 09/30/24 06:02 100 MLS/HR Acetaminophen/ Hydrocodone Bitart 1 tab Q6HPRN PRN PO 09/29/24 12:15 09/30/24 05:12 1 TAB Clonidine HCl 0.2 mg BID PO 09/29/24 22:00 09/29/24 23:44 0.2 MG Examination: GENERAL:Normal, HEENT:Normal, NECK:Normal, LUNGS:Normal, CVS:Normal, ABDOMEN:Normal laboratory and microbiology Laboratory Tests 09/30/24 07:45 Test 09/30/24 07:45 Range/Units Serum Glucose 107 H 74-106 mg/dL Problem List/Assessment/Plan Problem List/Assessment/Plan 09/30/24 patient complaint of discomfort, tender to right inguinal , patient to wear scrotal support continuously, ambulate every 4 hours, full liquid diet, discharge in 24 hours Plan discussed with: Patient, Other (Dr. Green) AMRITA NEFF NP Sep 30, 2024 12:46
[2024-09-30 17:00] VITALS: BP 132/82; PULSE 58; RESP 16; TEMP 97.3; O2SAT 97
[2024-09-30 21:00] VITALS: BP 128/90; PULSE 56; RESP 18; TEMP 99; O2SAT 98
[2024-10-01 01:00] VITALS: BP 131/94; PULSE 57; RESP 18; TEMP 98.5; O2SAT 98
[2024-10-01 05:00] VITALS: BP 133/93; PULSE 62; RESP 20; TEMP 98.3; O2SAT 99
[2024-10-01 05:35] LABS: Chloride 105 mmol/L (98-107); Potassium 3.7 mmol/L (3.5-5.1); Sodium 140 mmol/L (136-145)
[2024-10-01 05:36] LABS: Anion Gap 6 (5-15); Calcium 9.9 mg/dL (8.7-10.4); Carbon Dioxide 29 mmol/L (20-31)
[2024-10-01 05:41] LABS: BUN/Creatinine Ratio 10.7 (10.0-20.0); Glucose 95 mg/dL (74-106)
[2024-10-01 05:43] LABS: Basophils # (auto) 0 10 ^3/uL (0-0.2); Basophils % (auto) 0.5 % (0.0-2.0); Eosinophils # (auto) 0.1 10 ^3/uL (0-0.8); Eosinophils % (auto) 2.4 % (0.0-7.0); Hematocrit 32.9 % (41.0-53.0); Hemoglobin 11.1 g/dL (13.5-17.5); Lymphocytes % (auto) 38.7 % (10.0-50.0); Mean Corpuscular Hgb Conc. 33.7 g/dL (32.0-36.0); Monocytes # (auto) 0.4 10 ^3/uL (0-1.3); Monocytes % (auto) 8.6 % (0.0-12.0); Neutrophils # (auto) 2.5 10 ^3/uL (1.6-8.6); Neutrophils % (auto) 49.8 % (37.0-80.0); Nucleated Red Blood Cells % 0.1 %; Platelet Count (auto) 300 10^3/uL (140-450); Red Cell Distribution Width 14.4 % (11.8-14.3); White Blood Cell 5.1 10^3/uL (4.4-10.8)
[2024-10-01 05:51] LABS: Blood Urea Nitrogen 8 mg/dL (9-23)
--- NOTE | 2024-10-01 07:43 | DVHDSRES ---
Discharge Summary Date of Admission Resident Creating Document: MARIA E ABRAHAM RESIDENT Sep 28, 2024 at 22:19 Date of Discharge: Oct 01, 2024 Admitting Diagnosis Acute abdominal pain likely due to Right inguinal hernia Wounds: No wounds present at this time. Labs/Diagnostic Data: Laboratory Results Test 10/01/24 04:48 09/30/24 07:45 09/29/24 23:40 09/28/24 23:22 White Blood Count 5.1 10^3/uL (4.4-10.8) Red Blood Count 3.70 10^6/uL (4.5-5.90) Hemoglobin 11.1 g/dL (13.5-17.5) Hematocrit 32.9 % (41.0-53.0) Mean Corpuscular Volume 89.0 fL (80.0-100.0) Mean Corpuscular Hemoglobin 30.0 pg (28.0-32.0) Mean Corpuscular Hemoglobin Concent 33.7 g/dL (32.0-36.0) Red Cell Distribution Width 14.4 % (11.8-14.3) Platelet Count 300 10^3/uL (140-450) Mean Platelet Volume 8.1 fL (6.9-10.8) Neutrophils (%) (Auto) 49.8 % (37.0-80.0) Lymphocytes (%) (Auto) 38.7 % (10.0-50.0) Monocytes (%) (Auto) 8.6 % (0.0-12.0) Eosinophils (%) (Auto) 2.4 % (0.0-7.0) Basophils (%) (Auto) 0.5 % (0.0-2.0) Neutrophils # (Auto) 2.5 10 ^3/uL (1.6-8.6) Lymphocytes # (Auto) 2.0 10 ^3/uL (0.4-5.4) Monocytes # (Auto) 0.4 10 ^3/uL (0-1.3) Eosinophils # (Auto) 0.1 10 ^3/uL (0-0.8) Basophils # (Auto) 0 10 ^3/uL (0-0.2) Nucleated Red Blood Cells 0.1 % Sodium Level 140 mmol/L (136-145) Potassium Level 3.7 mmol/L (3.5-5.1) Chloride Level 105 mmol/L (98-107) Carbon Dioxide Level 29 mmol/L (20-31) Anion Gap 6 (5-15) Blood Urea Nitrogen 8 mg/dL (9-23) Creatinine 0.75 mg/dL (0.700-1.30) Glomerular Filtration Rate Calc 118 mL/min (>90) BUN/Creatinine Ratio 10.7 (10.0-20.0) Serum Glucose 95 mg/dL (74-106) Calcium Level 9.9 mg/dL (8.7-10.4) Total Bilirubin 0.7 mg/dL (0.2-1.0) Aspartate Amino Transferase (AST) 9 U/L (13-40) Alanine Aminotransferase (ALT) < 9 U/L (7-40) Alkaline Phosphatase 61 U/L (46-116) Total Protein 6.6 g/dL (5.7-8.2) Albumin 4.4 g/dL (3.2-4.8) Urine Color Yellow (Yellow) Urine Clarity Clear (Clear) Urine pH 7.0 (5.0-9.0) Urine Specific [place] 1.030 (1.001-1.035) Urine Protein Trace (Negative) Urine Ketones Trace (Negative) Urine Blood Negative /uL (Negative) Urine Nitrite Negative (Negative) Urine Bilirubin Negative (Negative) Urine Urobilinogen Normal mg/dL (Negative) Urine Leukocyte Esterase Negative /uL (Negative) Urine RBC 3 /hpf (0 - 3) Urine WBC 1 /hpf (0 - 3) Urine Squamous Epithelial Cells None seen /hpf (<5) Urine Bacteria None seen /hpf (None Seen) Urine Hyaline Casts Few /lpf (0 - 2) Urine Mucus Few (None Seen) Urine Glucose Normal mg/dL (Normal) Urine Opiates Screen Pos (NEGATIVE) Urine Fentanyl Screen Pos (NEGATIVE) Urine Barbiturates Screen Neg (NEGATIVE) Urine Phencyclidine Screen Neg (NEGATIVE) Urine Amphetamines Screen Neg (NEGATIVE) Urine Benzodiazepines Screen Pos (NEGATIVE) Urine Cocaine Screen Neg (NEGATIVE) Urine Cannabinoids Screen Pos (NEGATIVE) Prothrombin Time 10.5 sec (9.3-11.8) Prothrombin Time INR 0.99 (0.9-1.15) Activated Partial Thromboplast Time 26.3 SEC (24.5-34.5) Test 09/28/24 13:36 Direct Bilirubin 0.1 mg/dL (<0.3) Other Laboratory Tests 10/01/24 04:48 Brief Hx & Hospital Course: Hospital Course: This is a 39-year-old male with past medical history of hypertension who presented to the ED with chief complaint of acute abdominal pain associated with nausea and vomiting. The patient admitted, that had been dealing with minimal abdominal discomfort for the last four months but that has been tolerable until recently that became acute and on tolerable. The patient states that since one day before coming to the ED, he started experiencing severe abdominal pain that was localized in the right groin area described as moderate to severe in nature. The patient also reported associated nausea and emesis. The patient denied melena, hematemesis, hematochezia, chest pain, shortness of breath or any other symptoms at this time. Initial CT scan of the abdomen showed moderate size right inguinal hernia containing fluid, intra- abdominal fat and small bowel loop likely due to small bowel obstruction with dilated loops proximal to the herniating loop in the right inguinal hernia. Surgery was consulted and right inguinal incarcerated hernia repair was performed on 09/29/24. The patient was started on IV cefazolin and metronidazole on admission. Today, patient was seen and examined at bedside. The patient has no abdominal pain at this time and states that has minimal discomfort of the right inguinal area where the incision is located. Patient states that he is passing gases and bowel movement without complications. The patient is currently tolerating mechanical soft diet without nausea/vomiting. We will progress diet today and possibly discharge the patient since the patient is ambulating without difficulties. Patient has been working with physical therapy in the past days without complications. Will Discharge on cephalexin 500mg bid for 3 more days. Patient agrees and understands the plan. Admitting diagnosis: Acute abdominal pain likely due to right inguinal hernia Discharge plan: -continue home medications -follow-up with PCP and surgeon in one and two weeks respectively -progress diet as tolerated -continue ambulation and activity as tolerated -return to the ED in case of acute abdominal pain, fever/chills or any other abnormal symptom. Consults/Reason for consult Surgeon for right inguinal incarcerated hernia repair Operations or Procedures CT ABDOMEN AND PELVIS WITHOUT CONTRAST CLINICAL HISTORY: possible right inguinal hernia TECHNIQUE: Multiple contiguous axial images of the abdomen and pelvis without intravenous contrast. The images were reformatted degenerate coronal and sagittal reconstructions. All CT scans at this medical facility are performed using dose modulation techniques as appropriate to a performed exam including the following:Automated exposure control was utilized; adjustment of the MA and/or KV according to patient size; and use of iterative reconstruction technique. Radiation Dose Information: CT Dose: CTDI volume is a mGy. Dose-length product is 495 mGy*cm Comparison: CT CT AB PEL WO CON-NO ORAL OR IV on DOS: 01/31/23 FINDINGS: Evaluation of the abdomen and pelvis is limited without intravenous contrast. There is a moderate size right inguinal hernia containing fluid, intra-abdominal fat and small bowel loop . There is likely small bowel obstruction with dilated loops proximal to the herniating loop in the right inguinal hernia. These measure up to 3.5 cm and are fluid-filled. The large bowel loops demonstrate normal caliber. There is a small fat containing left inguinal hernia. The liver, gallbladder, pancreas, kidneys, adrenal glands, and spleen appear within normal limits. There is no gross evidence of abdominal lymphadenopathy. There is no free fluid or free air. The stomach grossly appears unremarkable. The abdominal aorta and IVC appear within normal limits. The bladder appears unremarkable for the degree of distention. Pelvic organ appears within normal limits. There is no gross evidence of a pelvic mass. There is no free fluid collection. Lung bases are clear. Again noted is a bleb in the lingula. There is no acute osseous abnormality. IMPRESSION: 1. Moderate size right inguinal hernia containing fluid, intra-abdominal fat and small bowel loop. There is likely small bowel obstruction with dilated loops proximal to the herniating loop in the right inguinal hernia. 2. Small fat containing left inguinal hernia. CHEST RADIOGRAPH Indication: sob Technique: Single frontal view of the chest was obtained Comparison: None FINDINGS: Lines and Tubes: None Lungs: Hazy opacity in the left lower lobe. Pleura: No effusion. No pneumothorax. Cardiomediastinal contours: Unremarkable Bones: No acute osseous abnormality. IMPRESSION: 1. Mild hazy opacity in the left lower lobe may represent atelectasis or infiltrate. DATE OF SURGERY: 09/29/2024 PREOPERATIVE DIAGNOSIS: Incarcerated right inguinal hernia. POSTOPERATIVE DIAGNOSIS: Incarcerated right inguinal hernia. SURGEON: Donavan Green MD ORNAMENTAL METAL WORKER: Eric Santos NP. ANESTHESIA: General endotracheal. ANESTHESIOLOGIST: Dr. Madrid. PROCEDURE: Repair of incarcerated right inguinal hernia. DESCRIPTION OF PROCEDURE: Under general anesthesia with the patient's skin prepped and draped and infiltrated with 0.25% Marcaine and 1% Xylocaine at the site of the incarcerated hernia, incision was made over the visible palpable bulge. Incision was deepened with an electrocautery onto the fibers of the external oblique aponeurosis. The external inguinal ring was identified. The ilioinguinal nerve was identified, reflected laterally and protected. The patient's cord structures were densely adherent to it, inflamed fibrotic external inguinal hernia sac, which was hemorrhagic with evidence of incarceration. The sac was opened and digitally explored. It contained no viscera at the time of this exploration. The sac was then dissected from the port structures and cremasteric fibers with great deal of difficulty due to the tremendous amount of fibrosis and inflammatory reaction. Eventually, the cord structures including the vas deferens were from the sac and retracted laterally and protected. The sac was traced high into the internal inguinal ring where it was clamped with Purnima clamps and the excess peritoneum was amputated and submitted. The stump of the peritoneal reflection was triply ligated with a nonabsorbable sutures. Subsequently, a Bassini type repair was carried out using nonabsorbable sutures through the conjoined tendon and reflecting portion of Poupart's ligament. The repair was carried out to reconstruct the external ring to accommodate the cord structures and the fingertip in order not to infarct the testicle. At this point, the ilioinguinal nerve was returned into its normal anatomical position. The wound was irrigated. Hemostasis was meticulously accomplished. The testicle was placed back into the scrotal compartment and placed on tension. The subcutaneous tissues and skin were approximated using Monocryl sutures, Dermabond glue and Steri-Strips. The patient remained hypertensive throughout the procedure with diastolic blood pressures over 100 despite the anesthesiologist's interventions. The patient left the operating room to be transferred to the recovery room. Condition at Discharge: Good Final Diagnosis/Problems List Acute abdominal pain likely due to incarcerated right inguinal hernia Possible Small bowel obstruction likely due to incarcerated right inguinal hernia, resolved S/P right inguinal incarcerated hernia repair day 2 Drug abuser cannabis Nicotine dependent Hypokalemia, resolved Discharge Disposition: Home Discharge Instruct/Medications Diet: Regular Diet comment: Continue progresing diet as tolerated Activity: No Restrictions, As Tolerated Follow Up/Referral: F/U with PCP in 1 week F/U with surgeon in 2 weeks Medications: Cephalexin 500mg BID for 3 more days Discharge Statement: "Patient was advised to return to the ER or call 911 if any headaches, dizziness, shortness of breath, chest pain, abdominal pain, bleeding, fevers, or worsening of medical condition. Patient was counseled about treatment plan, medications, possible side effects, patientverbalized understanding. All questions were answered to the best of my ability. This discharge took greater then 30 minutes in planning, reviewing documentation, counseling the patient, and discussing with other team members." ASSESSMENT ASSESSMENT Assessment Acute abdominal pain likely due to incarcerated right inguinal hernia Possible Small bowel obstruction likely due to incarcerated right inguinal hernia, resolved S/P right inguinal incarcerated hernia repair day 2 Drug abuser cannabis Nicotine dependent Hypokalemia, resolved Date of Service: Oct 01, 2024 Billing Provider: RAJWINDER SMALLWOOD MD Common Visit Codes: 23555-SHD/OBS DISCH DAY >30min MARIA E ABRAHAM RESIDENT Oct 01, 2024 07:43 RAJWINDER SMALLWOOD MD Oct 01, 2024 16:35
[2024-10-01 08:44] VITALS: BP 132/87; PULSE 53; RESP 16; TEMP 97.7; O2SAT 99
[2024-10-01] MEDS ORDERED: CEPH500C PO (09:50)
[2024-10-01 10:25] VITALS: BP 142/97; TEMP 36.5
--- NOTE | 2024-10-01 10:41 | DVHPN2 ---
Progress Note Date Seen: Oct 01, 2024 Has the PT tested + for MRSA If YES, has PT been informed?: No Medical Necessity Reason Pt with a Central, PICC or Fol: No Objective vital signs Vital Sign Date Time Temp Pulse Resp B/P (MAP) Pulse Ox O2 Delivery O2 Flow Rate FiO2 10/01/24 10:25 36.5 10/01/24 08:44 53 16 132/87 (102) 99 10/01/24 07:56 Room Air* 0 21 Total Intake and Output 09/30/24 09/30/24 10/01/24 15:00 23:00 07:00 Intake Total 150 ml 675 ml Balance 150 ml 675 ml medications Current Medications Medications Dose Ordered Sig/Anita Route Start Time Stop Time Status Last Admin Dose Admin Ondansetron HCl 4 mg Q4HPRN PRN IV 09/28/24 22:30 09/29/24 20:05 4 MG Morphine Sulfate 2 mg Q4HPRN PRN IV 09/28/24 22:30 10/01/24 05:48 2 MG Hydralazine HCl 10 mg Q6HP PRN IV 09/28/24 23:00 Cefazolin Sodium 50 ml @ 100 mls/hr Q8HR IV 09/29/24 14:00 10/01/24 05:46 100 MLS/HR Metronidazole 100 ml @ 100 mls/hr Q8HR IV 09/29/24 14:00 10/01/24 05:47 100 MLS/HR Acetaminophen/ Hydrocodone Bitart 1 tab Q6HPRN PRN PO 09/29/24 12:15 09/30/24 23:36 1 TAB Clonidine HCl 0.2 mg BID PO 09/29/24 22:00 09/29/24 23:44 0.2 MG laboratory and microbiology Laboratory Tests 10/01/24 04:48 Test 10/01/24 04:48 Range/Units Serum Glucose 95 74-106 mg/dL Problem List/Assessment/Plan Problem List/Assessment/Plan 10/01/24 doing well, wound ok, cleared for discharge Plan discussed with: Patient JONI BAKER MD Oct 01, 2024 10:41
--- NOTE | 2024-10-01 10:50 | DVHPN2 ---
Progress Note Date Seen: Oct 01, 2024 Has the PT tested + for MRSA If YES, has PT been informed?: No Medical Necessity Reason Pt with a Central, PICC or Fol: No Subjective Patient reports: No new complaints, Feels better Objective vital signs Vital Sign Date Time Temp Pulse Resp B/P (MAP) Pulse Ox O2 Delivery O2 Flow Rate FiO2 10/01/24 10:25 36.5 10/01/24 08:44 53 16 132/87 (102) 99 10/01/24 07:56 Room Air* 0 21 Total Intake and Output 09/30/24 09/30/24 10/01/24 15:00 23:00 07:00 Intake Total 150 ml 675 ml Balance 150 ml 675 ml medications Current Medications Medications Dose Ordered Sig/Anita Route Start Time Stop Time Status Last Admin Dose Admin Ondansetron HCl 4 mg Q4HPRN PRN IV 09/28/24 22:30 09/29/24 20:05 4 MG Morphine Sulfate 2 mg Q4HPRN PRN IV 09/28/24 22:30 10/01/24 05:48 2 MG Hydralazine HCl 10 mg Q6HP PRN IV 09/28/24 23:00 Cefazolin Sodium 50 ml @ 100 mls/hr Q8HR IV 09/29/24 14:00 10/01/24 05:46 100 MLS/HR Metronidazole 100 ml @ 100 mls/hr Q8HR IV 09/29/24 14:00 10/01/24 05:47 100 MLS/HR Acetaminophen/ Hydrocodone Bitart 1 tab Q6HPRN PRN PO 09/29/24 12:15 09/30/24 23:36 1 TAB Clonidine HCl 0.2 mg BID PO 09/29/24 22:00 09/29/24 23:44 0.2 MG laboratory and microbiology Laboratory Tests 10/01/24 04:48 Test 10/01/24 04:48 Range/Units Serum Glucose 95 74-106 mg/dL Problem List/Assessment/Plan Problem List/Assessment/Plan 09/30/24 patient complaint of discomfort, tender to right inguinal , patient to wear scrotal support continuously, ambulate every 4 hours, full liquid diet, discharge in 24 hours 10/01/24 - no new complaints, wound ok , ok to discharge per surgery point of view, no heavy lifting or straining , patient to follow up in clinic in two weeks Plan discussed with: Patient AMRITA NEFF NP Oct 01, 2024 10:50
== END 2024-10-01 11:20 | disposition home or self-care (01) | DRG 352 ==
LOC: ER 10:37 → OVERFLOW 22:19 → CENTRAL 22:26
PROVIDERS: ADMIT Student in an Organized Health Care Education/Training Program; ATTEND Student in an Organized Health Care Education/Training Program
PROC: 0YQ50ZZ Repair Right Inguinal Region, Open Approach (ICD-10-PCS; principal; 2024-09-29 08:04)
DX: K40.00 Bilateral inguinal hernia, with obstruction, without gangrene, not specified as recurrent (principal); E87.6 Hypokalemia; F17.210 Nicotine dependence, cigarettes, uncomplicated; I10 Essential (primary) hypertension; F12.10 Cannabis abuse, uncomplicated; Z82.49 Family history of ischemic heart disease and other diseases of the circulatory system; Z82.3 Family history of stroke
CPT/HCPCS: 36415; 71045; 74176; 80048; 80053; 80076; 80307; 81001; 85025; 85610; 85730; 86850; 86900; 86901; G0378; J0330; J1100; J2250; J2405; J2704; J3480; J3490; Q0162